=== PATIENT | male | born 1945 | race Hispanic/Latino ===

== ENCOUNTER 2018-03-16 08:19 | Day surgery (SDC) | payer MEDICARE, OTHER ==
[2018-03-06 00:28] VITALS: BMI 26.6
[2018-03-16] MEDS ORDERED: Etomidate 20 mg/10ml Inj IV ONE (10:19)
[2018-03-16] MEDS ORDERED: Sodium Chloride 0.9% 1,000 ML IV SCH (10:30)
[2018-03-16 15:46] VITALS: BP 136/61; PULSE 58; RESP 16; TEMP 97.7; O2SAT 98
== END 2018-03-16 12:42 | disposition home or self-care (01) ==
LOC: ENDO 08:19
PROVIDERS: ATTEND Internal Medicine Gastroenterology
DX: K21.9 Gastro-esophageal reflux disease without esophagitis (principal); K29.50 Unspecified chronic gastritis without bleeding; E11.9 Type 2 diabetes mellitus without complications; I25.10 Atherosclerotic heart disease of native coronary artery without angina pectoris; R10.13 Epigastric pain
CPT/HCPCS: 43239; 82948; 88305; 88312; 88342; J2001; J7030; J7040

== ENCOUNTER 2018-04-13 12:32 | Emergency (ER) | payer MEDICARE, OTHER ==
[2018-04-13 12:33] VITALS: BMI 26.6
[2018-04-13 12:48] VITALS: RESP 18
--- NOTE | 2018-04-13 13:00 | ED PDOC ---
Arrival/HPI <Rafael Crocker - Last Filed: 04/13/18 13:57> - General Historian: Patient - History of Present Illness Narrative History of Present Illness (Text): 04/13/18 12:58 72M pmhx of HTN and DM presents to ED after fall on outstretched hand last night. Pt took a tylenol this morning for the pain. Pt denies any inciting events leading up to or after the fall. Pt denies LOC, CP FC, NV, SOB, syncope, dizziness, vertigo, loss of vision, unsteady gait. Pt says he just tripped because it was dark in the room. Pt states he is able to the recall the event clearly and accurately. 04/13/18 13:02 Time/Duration: 24 hours Symptom Onset: Sudden Symptom Course: Worsening Quality: Aching Context: Tripped <Don Buckley - Last Filed: 04/13/18 15:06> - General Chief Complaint: Trauma Time Seen by Provider: 04/13/18 12:39 Past Medical History - Provider Review Nursing Documentation Reviewed: Yes - Infectious Disease Hx of Infectious Diseases: None - Tetanus Immunization Tetanus Immunization: >10 years Ago - Cardiac Hx Cardiac Disorders: Yes Hx Hypertension: Yes Hx Pacemaker: No Other/Comment: Open heart sx - Neurological Hx Paralysis: No - Endocrine/Metabolic Hx Diabetes Mellitus Type 2: Yes - Hematological/Oncological Hx Blood Transfusions: No Hx Blood Transfusion Reaction: No - Musculoskeletal/Rheumatological Hx Musculoskeletal Disorders: Yes - Psychiatric Hx Emotional Abuse: No Hx Physical Abuse: No Hx Substance Use: No - Surgical History Hx Cardiac Catheterization: Yes 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) - Anesthesia Hx Anesthesia: Yes Hx Anesthesia Reactions: No Hx Malignant Hyperthermia: No - Suicidal Assessment Feels Threatened In Home Enviroment: No <Don Buckley - Last Filed: 04/13/18 15:06> Family/Social History Family/Social History: Unknown Family HX Smoking Status: Never Smoked Hx Alcohol Use: Yes (OCCASSIONALY) Hx Substance Use: No Hx Substance Use Treatment: No <Don Buckley - Last Filed: 04/13/18 15:06> Allergies/Home Meds <Rafael Crocker - Last Filed: 04/13/18 13:57> <Don Buckley - Last Filed: 04/13/18 15:06> Allergies/Adverse Reactions: Allergies No Known Allergies Allergy (Verified 02/29/16 16:51) Home Medications: Home Meds Medication Instructions Recorded Confirmed Aspirin [Ecotrin] 81 mg PO DAILY 02/29/16 03/16/18 Famotidine [Pepcid] 10 mg PO DAILY 02/29/16 03/16/18 MetFORMIN [glucOPHAGE] 1,000 mg PO BID 02/29/16 03/16/18 Simvastatin [Zocor] 20 mg PO DAILY 02/29/16 03/16/18 Propranolol [Propranolol HCl] 20 mg PO TID 02/13/18 03/16/18 Ascorbate Calcium [Vitamin C] 500 mg PO BID 03/05/18 03/16/18 B Complex with Vitamin C 1 each PO DAILY 03/05/18 03/16/18 [B-Complex Plus Vitamin C] Cholecalciferol (Vitamin D3) 1,000 unit PO TID 03/05/18 03/16/18 [Vitamin D3] Fluticasone/Umeclidin/Vilanter 1 inh INH DAILY 03/05/18 03/16/18 [Trelegy Ellipta 100-62.5-25] Multivitamin [Multivitamins] 1 each PO DAILY 03/05/18 03/16/18 [place]-3S/Dha/Epa/Fish Oil [Fish 1 each PO TID 03/05/18 03/16/18 Oil EC 1,000 mg Softgel] Repaglinide [Prandin] 2 mg PO TID 03/05/18 03/16/18 Review of Systems - Physician Review All systems were reviewed & negative as marked: Yes - Review of Systems Constitutional: Normal. absent: Fatigue Eyes: absent: Vision Changes Respiratory: absent: SOB Cardiovascular: absent: Palpitations, Syncope Gastrointestinal: absent: Nausea Genitourinary Male: absent: Dysuria Musculoskeletal: Arthralgias (L wrist) Neurological: absent: Headache, Dizziness Psychiatric: absent: Anxiety <Don Buckley - Last Filed: 04/13/18 15:06> Physical Exam Vital Signs Temp Pulse Resp BP Pulse Ox 04/13/18 12:33 97.8 F 63 18 158/72 H 97 <Rafael Crocker - Last Filed: 04/13/18 13:57> Vital Signs Temp Pulse Resp BP Pulse Ox 04/13/18 12:33 97.8 F 63 18 158/72 H 97 Temperature: Afebrile Blood Pressure: Hypertensive Pulse: Regular Respiratory Rate: Normal Appearance: Positive for: Well-Appearing, Non-Toxic, Comfortable Pain Distress: Mild Mental Status: Positive for: Alert and Oriented X 3 - Systems Exam Head: Present: Atraumatic, Normocephalic Pupils: Present: PERRL. No: Sluggish Extroacular Muscles: Present: EOMI. No: Gaze Palsy Conjunctiva: Present: Normal Mouth: Present: Moist Mucous Membranes Respiratory/Chest: Present: Clear to Auscultation. No: Respiratory Distress, Wheezes, Rales, Rhonchi Cardiovascular: Present: Regular Rate and Rhythm, Normal S1, S2. No: Murmurs Back: Present: Normal Inspection. No: Paraspinal Tenderness Upper Extremity: Present: NORMAL PULSES, Tenderness (L wrist pain with flexion and ext active and passive ROM, pain with radial deviation, pain with hand gripping, neg scaphoid pain, neg snuff box pain, neg peres's,) Neurological: Present: CN II-XII Intact, Speech Normal Skin: Present: Warm, Dry, Normal Color Psychiatric: Present: Alert, Oriented x 3 <Don Buckley - Last Filed: 04/13/18 15:06> Medical Decision Making ED Course and Treatment: A 72 year old male presents to the emergency department for further evaluation s/p fall. In agreement with resident note, which includes further HPI details. Patient was seen and evaluated with resident, came up with plan and treatment together. - RAD Interpretation Radiology Orders: 04/13/18 12:55 WRIST, LEFT 3 VIEWS [RAD] Stat <Rafael Crocker - Last Filed: 04/13/18 13:57> ED Course and Treatment: 04/13/18 13:06 #Fall on outstretched Hand L side L wrist X ray 3 views - RAD Interpretation Radiology Orders: 04/13/18 12:55 WRIST, LEFT 3 VIEWS [RAD] Stat <Don Buckley - Last Filed: 04/13/18 15:06> - Scribe Statement The provider has reviewed the documentation as recorded by the Scribe Lisa Mcgill Provider Scribe Attestation: All medical record entries made by the Scribe were at my direction and personall y dictated by me. I have reviewed the chart and agree that the record accurately reflects my personal performance of the history, physical exam, medical decision making, and the department course for this patient. I have also personally directed, reviewed, and agree with the discharge instructions and disposition. <Rafael Crocker - Last Filed: 04/13/18 13:57> Disposition/Present on Arrival <Rafael Crocker - Last Filed: 04/13/18 13:57> - Present on Arrival Any Indicators Present on Arrival: No History of DVT/PE: No History of Uncontrolled Diabetes: No Urinary Catheter: No History of Decub. Ulcer: No History Surgical Site Infection Following: None - Disposition Have Diagnosis and Disposition been Completed?: Yes Disposition Time: 15:02 <Don Buckley - Last Filed: 04/13/18 15:06> - Disposition Diagnosis: Wrist injury Disposition: HOME/ ROUTINE Patient Problems: Current Active Problems Problem Status Onset Wrist injury Acute Condition: GOOD Referrals: Obi Leslie MD [Family Provider] - Follow up with primary Forms: [employer] (Fijian)
--- NOTE | 2018-04-13 15:05 | RAD ---
Date of service: 04/13/2018 PROCEDURE: Left Wrist Radiographs. HISTORY: fall on outstetched hand COMPARISON: None. FINDINGS: BONES: Normal. No fracture. JOINTS: Degenerative changes are seen at the base of the thumb SOFT TISSUES: Normal. OTHER FINDINGS: None. IMPRESSION: Degenerative changes at the base of the thumb No acute fracture
[2018-04-13 15:46] VITALS: BP 136/89; PULSE 76; TEMP 98; O2SAT 98
== END 2018-04-13 15:46 | disposition home or self-care (01) ==
LOC: ED 12:32
DX: S69.92XA Unspecified injury of left wrist, hand and finger(s), initial encounter (principal); W01.0XXA Fall on same level from slipping, tripping and stumbling without subsequent striking against object, initial encounter; I10 Essential (primary) hypertension; E11.9 Type 2 diabetes mellitus without complications

== ENCOUNTER 2018-04-14 02:02 | Emergency (ER) | payer MEDICARE, OTHER ==
[2018-04-14 02:02] VITALS: BMI 26.6
[2018-04-14 02:17] VITALS: TEMP 97.9
--- NOTE | 2018-04-14 03:08 | ED PDOC ---
Arrival/HPI - General Historian: Patient - History of Present Illness Narrative History of Present Illness (Text): 04/14/18 03:02 72 y/o with PMHx of DM, HTN, recent fall on outstretched hand presents to ED with complaints of L hand decreased ROM and pain. Pt had presented earlier to ED with similar complaints and reports symptoms haven't improved. He denies LOC when he fell, bleeding or decreased sensation, numbness or tingling. He denies fevers, chills, headache, dizziness, chest pain, palpitations, shortness of breath, nausea, vomiting, constipation, diarrhea, dysuria. Time/Duration: Prior to Arrival Symptom Onset: Gradual Symptom Course: Unchanged Severity Level: Mild Activities at Onset: Rest <Mae Bravo - Last Filed: 04/14/18 06:17> <Brian Melara - Last Filed: 04/16/18 01:17> - General Chief Complaint: Finger,Hand,&Wrist Time Seen by Provider: 04/14/18 02:42 Past Medical History - Provider Review Nursing Documentation Reviewed: Yes - Infectious Disease Hx of Infectious Diseases: None - Tetanus Immunization Tetanus Immunization: >10 years Ago - Cardiac Hx Cardiac Disorders: Yes Hx Hypertension: Yes Hx Pacemaker: No Other/Comment: Open heart sx - Neurological Hx Paralysis: No - Endocrine/Metabolic Hx Diabetes Mellitus Type 2: Yes - Hematological/Oncological Hx Blood Transfusions: No Hx Blood Transfusion Reaction: No - Musculoskeletal/Rheumatological Hx Musculoskeletal Disorders: Yes - Psychiatric Hx Emotional Abuse: No Hx Physical Abuse: No Hx Substance Use: No - Surgical History Hx Cardiac Catheterization: Yes 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) - Anesthesia Hx Anesthesia: Yes Hx Anesthesia Reactions: No Hx Malignant Hyperthermia: No - Suicidal Assessment Feels Threatened In Home Enviroment: No <Mae Bravo - Last Filed: 04/14/18 06:17> Family/Social History - Physician Review Nursing Documentation Reviewed: Yes Family/Social History: Unknown Family HX Smoking Status: Never Smoked Hx Alcohol Use: Yes (OCCASSIONALY) Hx Substance Use: No Hx Substance Use Treatment: No <Mae Bravo - Last Filed: 04/14/18 06:17> Allergies/Home Meds <Mae Bravo - Last Filed: 04/14/18 06:17> <Brian Melara - Last Filed: 04/16/18 01:17> Allergies/Adverse Reactions: Allergies No Known Allergies Allergy (Verified 02/29/16 16:51) Home Medications: Home Meds Medication Instructions Recorded Confirmed Aspirin [Ecotrin] 81 mg PO DAILY 02/29/16 03/16/18 Famotidine [Pepcid] 10 mg PO DAILY 02/29/16 03/16/18 MetFORMIN [glucOPHAGE] 1,000 mg PO BID 02/29/16 03/16/18 Simvastatin [Zocor] 20 mg PO DAILY 02/29/16 03/16/18 Propranolol [Propranolol HCl] 20 mg PO TID 02/13/18 03/16/18 Ascorbate Calcium [Vitamin C] 500 mg PO BID 03/05/18 03/16/18 B Complex with Vitamin C 1 each PO DAILY 03/05/18 03/16/18 [B-Complex Plus Vitamin C] Cholecalciferol (Vitamin D3) 1,000 unit PO TID 03/05/18 03/16/18 [Vitamin D3] Fluticasone/Umeclidin/Vilanter 1 inh INH DAILY 03/05/18 03/16/18 [Trelegy Ellipta 100-62.5-25] Multivitamin [Multivitamins] 1 each PO DAILY 03/05/18 03/16/18 [place]-3S/Dha/Epa/Fish Oil [Fish 1 each PO TID 03/05/18 03/16/18 Oil EC 1,000 mg Softgel] Repaglinide [Prandin] 2 mg PO TID 03/05/18 03/16/18 Review of Systems - Review of Systems Constitutional: Normal Eyes: Normal ENT: Normal Respiratory: Normal Cardiovascular: Normal Gastrointestinal: Normal Genitourinary Male: Normal Musculoskeletal: Joint Swelling (L hand. Decreased flexion of L hand) Skin: Normal Neurological: Normal Endocrine: Normal Hemo/Lymphatic: Normal Psychiatric: Normal <Mae Bravo - Last Filed: 04/14/18 06:17> Physical Exam Vital Signs Reviewed: Yes Vital Signs Temp Pulse Resp BP Pulse Ox 04/14/18 02:15 97.9 F 67 18 170/74 H 96 Temperature: Afebrile Blood Pressure: Normal Pulse: Regular Respiratory Rate: Normal Appearance: Positive for: Well-Appearing, Non-Toxic, Comfortable Pain Distress: None Mental Status: Positive for: Alert and Oriented X 3 - Systems Exam Head: Present: Atraumatic, Normocephalic Pupils: Present: PERRL Extroacular Muscles: Present: EOMI Conjunctiva: Present: Normal Mouth: Present: Moist Mucous Membranes Neck: Present: Normal Range of Motion Respiratory/Chest: Present: Clear to Auscultation, Good Air Exchange. No: Respiratory Distress, Accessory Muscle Use Cardiovascular: Present: Regular Rate and Rhythm, Normal S1, S2. No: Murmurs Abdomen: No: Tenderness, Distention, Peritoneal Signs Back: Present: Normal Inspection Upper Extremity: Present: Edema, NORMAL PULSES, Tenderness (median nerve (+) tinels), Neurovascularly Intact, Capillary Refill < 2s, Norm 2-Pt Discrimination. No: Cyanosis Lower Extremity: Present: Normal Inspection. No: Edema Neurological: Present: GCS=15, CN II-XII Intact, Speech Normal Skin: Present: Warm, Dry, Normal Color. No: Rashes Psychiatric: Present: Alert, Oriented x 3, Normal Insight, Normal Concentration <Mae Bravo - Last Filed: 04/14/18 06:17> Vital Signs Temp Pulse Resp BP Pulse Ox 04/14/18 05:21 65 17 155/89 H 100 04/14/18 02:15 97.9 F 67 18 170/74 H 96 <Brian Melara - Last Filed: 04/16/18 01:17> Medical Decision Making ED Course and Treatment: 04/14/18 03:10 Impression: 72 y/o M presents with L hand after fall earlier today Differential diagnosis includes but not limited to: Carpal tunnel syndrome Prior visit reviewed Plan: Toradol 30mg IM Apply ice pack Reassess & dispo 04/14/18 04:56 Patient re-assessed. Pt notes improvement in pain and range of motion. ROM is at baseline or that hand. Pt reports he has decreased ROM in L hand at baseline due to arthritis. Reassessment Condition: Re-examined <Mae Bravo - Last Filed: 04/14/18 06:17> - Medication Orders Current Medication Orders: Discontinued Medications Ketorolac Tromethamine (Toradol) 30 mg IM STAT STA Stop: 04/14/18 03:03 Last Admin: 04/14/18 03:16 Dose: 30 mg MAR Pain Assessment Document 04/14/18 03:16 RD (Rec: 04/14/18 03:16 RD [id number]) Pain Reassessment Is this a pain reassessment? No Sleep Is patient sleeping during reassessment? No Presence of Pain Presence of Pain Yes Pain Scale Used Protocol: PSCALES Pain Scale Used Numeric Location Left, Right or Bilateral Left Pain Location Body Site Hand IM Administration Charges Document 04/14/18 03:16 RD (Rec: 04/14/18 03:16 RD [id number]) Injection Site MAR Injection Site Left Deltoid Charges for Administration # of IM Administrations 1 <Brian Melara - Last Filed: 04/16/18 01:17> - PA / RESIDENTIAL GAS HEAT TECHNICIAN / Resident Statement DOMITILA has reviewed & agrees with the documentation as recorded. DOMITILA has examined the patient and agrees with the treatment plan. <Mae Bravo - Last Filed: 04/14/18 06:17> - PA / RESIDENTIAL GAS HEAT TECHNICIAN / Resident Statement DOMITILA has examined the patient and agrees with the treatment plan. (72 yr old male p/w L hand pain after fall. No snuffbox tenderness. No UCL weakness. Good n.v status. Weakness of hand improved w/ pain meds, at baseline strength per pt. D/c chapo with followup and return indications.) <Brian Melara - Last Filed: 04/16/18 01:17> Disposition/Present on Arrival - Present on Arrival Any Indicators Present on Arrival: No History of DVT/PE: No History of Uncontrolled Diabetes: No Urinary Catheter: No History of Decub. Ulcer: No History Surgical Site Infection Following: None - Disposition Have Diagnosis and Disposition been Completed?: Yes Disposition Time: 04:58 <Mae Bravo - Last Filed: 04/14/18 06:17> <Brian Melara - Last Filed: 04/16/18 01:17> - Disposition Diagnosis: Hand arthritis, Hand sprain, Carpal tunnel syndrome Disposition: HOME/ ROUTINE Condition: GOOD Discharge Instructions (ExitCare): Carpal Tunnel Syndrome (DC), Hand Pain (DC), Making Everyday Tasks Easier With Arthritis Additional Instructions: Please take naproxen 250mg twice a day for 5 days. Please apply wrist splint to the affect hand Please refrain from heavy lifting with the affected hand Please follow up with you primary care doctor within 1 week regarding your emergency room visit. If symptoms return, please return to nearest emergency room Prescriptions: RX: Naproxen 250 mg PO BID #10 tablet Forms: [employer] (Czech)
[2018-04-14 05:25] VITALS: BP 155/89; PULSE 65; RESP 17; O2SAT 100
== END 2018-04-14 05:21 | disposition home or self-care (01) ==
LOC: ED 02:02
DX: S63.92XA Sprain of unspecified part of left wrist and hand, initial encounter (principal); X58.XXXA Exposure to other specified factors, initial encounter; M19.042 Primary osteoarthritis, left hand; G56.00 Carpal tunnel syndrome, unspecified upper limb; E11.9 Type 2 diabetes mellitus without complications; I10 Essential (primary) hypertension
CPT/HCPCS: 96372; 99283; J1885

== ENCOUNTER 2018-08-01 15:53 | Observation (INO) | payer MEDICARE, OTHER ==
[2018-08-01 15:54] VITALS: BMI 26.6
[2018-08-01] MEDS ORDERED: Sodium Chloride 0.9% 1,000 ML IV SCH ×2 (16:45→17:15)
--- NOTE | 2018-08-01 16:53 | ED PDOC ---
Arrival/HPI <Rafael Crocker - Last Filed: 08/01/18 18:30> - General Historian: Patient - History of Present Illness Narrative History of Present Illness (Text): Patient is a 72 year old male with past medical history of CAD s/p CABG, T2DM, carcinoid tumor, Vale's esophagus presenting with chief complaint of dizziness. Patient states that his symptoms began around 11:30 AM. He was stepping out of his car when he began to feel off balance so he returned to a si tting position. He states that since the onset of symptoms everytime he changed positions he would feel off balance. Denies any other symptomatic complaints. Denies fevers, chills, chest pain, shortness of breath, nausea, vomiting, abdominal pain, diarrhea, dysuria. Denies any recent illnesses. Reports good PO intake. Time/Duration: 4-6 hours Symptom Onset: Sudden Symptom Course: Unchanged Context: Standing <Beverly Slater - Last Filed: 08/01/18 19:31> - General Chief Complaint: Syncope Time Seen by Provider: 08/01/18 15:59 Past Medical History - Provider Review Nursing Documentation Reviewed: Yes - Infectious Disease Hx of Infectious Diseases: None - Tetanus Immunization Tetanus Immunization: >10 years Ago - Cardiac Hx Cardiac Disorders: Yes Hx Hypertension: Yes Hx Pacemaker: No Other/Comment: Open heart sx - Neurological Hx Neurological Disorder: No - HEENT Hx HEENT Disorder: No - Renal Hx Renal Disorder: No - Endocrine/Metabolic Hx Endocrine Disorders: Yes Hx Diabetes Mellitus Type 2: Yes - Hematological/Oncological Hx Blood Disorders: No - Integumentary Hx Dermatological Disorder: No - Musculoskeletal/Rheumatological Hx Musculoskeletal Disorders: Yes - Gastrointestinal Hx Gastrointestinal Disorders: No - Genitourinary/Gynecological Hx Genitourinary Disorders: No - Psychiatric Hx Psychophysiologic Disorder: No Hx Substance Use: No - Surgical History Hx Cardiac Catheterization: Yes 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) - Anesthesia Hx Anesthesia: Yes Hx Anesthesia Reactions: No Hx Malignant Hyperthermia: No - Suicidal Assessment Feels Threatened In Home Enviroment: No <Beverly Slater - Last Filed: 08/01/18 19:31> Family/Social History - Physician Review Nursing Documentation Reviewed: Yes Family/Social History: No Known Family HX Smoking Status: Never Smoked Hx Alcohol Use: Yes (occasionally) Hx Substance Use: No Hx Substance Use Treatment: No <Beverly Slater - Last Filed: 08/01/18 19:31> Allergies/Home Meds <Rafael Crocker - Last Filed: 08/01/18 18:30> <Beverly Slater - Last Filed: 08/01/18 19:31> Allergies/Adverse Reactions: Allergies No Known Allergies Allergy (Verified 08/01/18 16:11) Home Medications: Home Meds Medication Instructions Recorded Confirmed Aspirin [Ecotrin] 81 mg PO DAILY 02/29/16 08/01/18 Famotidine [Pepcid] 10 mg PO DAILY 02/29/16 08/01/18 MetFORMIN [glucOPHAGE] 500 mg PO BID 02/29/16 08/01/18 Simvastatin [Zocor] 20 mg PO DAILY 02/29/16 08/01/18 Propranolol [Propranolol HCl] 10 mg PO TID 02/13/18 08/01/18 Ascorbate Calcium [Vitamin C] 500 mg PO BID 03/05/18 08/01/18 B Complex with Vitamin C 1 each PO DAILY 03/05/18 08/01/18 [B-Complex Plus Vitamin C] Cholecalciferol (Vitamin D3) 1,000 unit PO TID 03/05/18 08/01/18 [Vitamin D3] Fluticasone/Umeclidin/Vilanter 1 inh INH DAILY 03/05/18 08/01/18 [Trelegy Ellipta 100-62.5-25] Multivitamin [Multivitamins] 1 each PO DAILY 03/05/18 08/01/18 [place]-3S/Dha/Epa/Fish Oil [Fish 1 each PO TID 03/05/18 08/01/18 Oil EC 1,000 mg Softgel] Repaglinide [Prandin] 2 mg PO DAILY 08/01/18 08/01/18 Review of Systems - Physician Review All systems were reviewed & negative as marked: Yes - Review of Systems Cardiovascular: Normal Gastrointestinal: Normal Genitourinary Male: Normal Neurological: Disequilibrium. absent: Focal Weakness, Facial Droop <Beverly Slater - Last Filed: 08/01/18 19:31> Physical Exam Vital Signs Temp Pulse Resp BP Pulse Ox 08/01/18 18:12 61 18 147/76 97 08/01/18 16:15 97.1 F L 65 18 140/64 96 <Rafael Crocker - Last Filed: 08/01/18 18:30> Vital Signs Reviewed: Yes Vital Signs Temp Pulse Resp BP Pulse Ox 08/01/18 16:15 97.1 F L 65 18 140/64 96 Temperature: Afebrile Blood Pressure: Normal Pulse: Regular Respiratory Rate: Normal Appearance: Positive for: Well-Appearing, Comfortable Pain Distress: None Mental Status: Positive for: Alert and Oriented X 3 - Systems Exam Head: Present: Atraumatic, Normocephalic Pupils: Present: PERRL Extroacular Muscles: Present: EOMI Conjunctiva: Present: Normal Mouth: Present: Moist Mucous Membranes Respiratory/Chest: Present: Clear to Auscultation, Good Air Exchange. No: Respiratory Distress, Accessory Muscle Use Cardiovascular: Present: Regular Rate and Rhythm. No: Normal S1, S2 Abdomen: Present: Normal Bowel Sounds. No: Tenderness, Distention, Rebound, Guarding Upper Extremity: Present: Normal Inspection Lower Extremity: Present: Normal Inspection. No: Edema Neurological: Present: GCS=15, CN II-XII Intact, Motor Func Grossly Intact, Normal Sensory Function Skin: Present: Warm, Dry, Normal Color Psychiatric: Present: Alert, Oriented x 3 <Beverly Slater - Last Filed: 08/01/18 19:31> Medical Decision Making ED Course and Treatment: 08/01/18 18:[address] cordero to the hospitalist service. patient to be admitted for new onset ataxia with concern for cerebellar stroke. initial images unremarkable. as per discussion with karen (and agreed), patient was not a candidate for thrombolysis. patient will require admission, MR imaging to rule out cva. - Lab Interpretations Lab Results: PT 11.9 SECONDS (9.4-12.5) 08/01/18 17:15 INR 1.07 08/01/18 17:15 APTT 34.8 Seconds (26.9-38.3) 08/01/18 17:15 Troponin I < 0.01 ng/mL 08/01/18 17:15 Total Bilirubin 0.4 mg/dL (0.2-1.3) 08/01/18 17:15 AST 72 U/L (17-59) H 08/01/18 17:15 ALT 103 U/L (7-56) H 08/01/18 17:15 Alkaline Phosphatase 41 U/L (38-126) 08/01/18 17:15 Total Protein 7.6 g/dL (5.8-8.3) 08/01/18 17:15 Albumin 4.4 g/dL (3.0-4.8) 08/01/18 17:15 Globulin 3.3 gm/dL 08/01/18 17:15 Albumin/Globulin Ratio 1.3 (1.1-1.8) 08/01/18 17:15 - RAD Interpretation Radiology Orders: 08/01/18 16:43 HEAD W/O (CODE STROKE) [CT] Stat CHEST PORTABLE [RAD] Stat 08/01/18 17:09 CTA HEAD/NECK CODE STROKE [CT] Stat - Medication Orders Current Medication Orders: Sodium Chloride (Sodium Chloride 0.9%) 1,000 mls @ 100 mls/hr IV .Q10H JOSÉ Last Admin: 08/01/18 18:10 Dose: 100 mls/hr eMAR Start Stop Document 08/01/18 18:10 BB (Rec: 08/01/18 18:10 BB [id number]) Intravenous Solution Start Date 08/01/18 Start Time 18:10 Sodium Chloride (Sodium Chloride 0.9%) 1,000 mls @ 100 mls/hr IV .Q10H JOSÉ Last Admin: 08/01/18 17:22 Dose: Not Given Non-Admin Reason: dup order Discontinued Medications Aspirin (Aspirin Chewable) 81 mg PO STAT STA Stop: 08/01/18 17:11 Last Admin: 08/01/18 18:10 Dose: 81 mg Clopidogrel Bisulfate (Plavix) 300 mg PO STAT STA Stop: 08/01/18 17:11 Last Admin: 08/01/18 18:10 Dose: 300 mg <Obi,Rafael - Last Filed: 08/01/18 18:30> ED Course and Treatment: Impression: 72 year old male with dizziness Plan: - CBC, CMP - CT head - Reassess and disposition Prior Visits: Notes and results from previous visits were reviewed. Progress Notes: 08/01/2018 16:43 Code stroke activated FINDINGS: HEMORRHAGE: No acute parenchymal, subarachnoid or extra-axial hemorrhage. BRAIN: Suspect minimal chronic periventricular white matter ischemic changes. VENTRICLES: No obstructive hydrocephalus. CALVARIUM: Calvarium intact. PARANASAL SINUSES: Minor polypoid like mucosal thickening inferior margins both maxillary antra. MASTOID AIR CELLS: Unremarkable as visualized. No inflammatory changes. OTHER FINDINGS: None. IMPRESSION: No acute intracranial hemorrhage. Suspect minimal chronic periventricular white matter ischemic changes. Mild generalized volume loss. Findings discussed with Dr. Hall at approximately 5:07 p.m. with written down and read back verification. 08/01/2018 17:[address] D eLa Cruz neurologist regarding patient. Administer plavix, aspirin, IVF and obtain CTA head neck as per Dr. De La Cruz's recommendations 08/01/18 18:25 Head and neck CTA reviewed. Patient hemodynamically stable and admitted to hospitalist service FINDINGS: The aortic arch and origins of the great vessels are widely patent despite some minor calcified plaque at the origin of the left subclavian as well as the right common carotid artery as it bifurcates head its origin off of the right brachiocephalic artery. The common carotid arteries and carotid bifurcations are widely patent with no significant atherosclerotic plaque. The distal internal carotid arteries including the petrous cavernous and supraclinoid segments are widely patent. Mild moderate calcified atherosclerotic plaque left carotid siphon and less of the right-side. The supraclinoid carotid arteries are also patent. Both vertebral arteries are patent and relatively symmetric in caliber throughout. Basilar artery is patent. The visualized major branches of the [id number] are also patent. More distal branches of the anterior middle and posterior cerebral branches are symmetric so far as can be seen. Note that the most distal branches taper and are not well delineated. No evidence of large aneurysm nor vascular malformation. OTHER FINDINGS: Mild multilevel degenerative spondylosis of the cervical spine. Lung apices are clear. Sternotomy wires are present. IMPRESSION: The common carotid arteries and vertebral arteries are widely patent without evidence of dissection, occlusion or significant stenosis. Minor calcified atherosclerotic plaque both carotid siphons. No evidence of large aneurysm nor vascular malformation. - RAD Interpretation Radiology Orders: 08/01/18 16:43 HEAD W/O (CODE STROKE) [CT] Stat CHEST PORTABLE [RAD] Stat - Medication Orders Current Medication Orders: Sodium Chloride (Sodium Chloride 0.9%) 1,000 mls @ 100 mls/hr IV .Q10H JOSÉ <Beverly Slater L - Last Filed: 08/01/18 19:31> rTPA Inclusion/Exclusion - Refusal of Treatment Patient Refused Treatment: No - Inclusion Criteria for Altepase All of the below criteria for inclusion were reviewed: Yes Patient is 18 years or Older: Yes The Clinical Diagnosis of Ischemic Stroke That is Causing a Potentially Disabling Neurological Deficit: Yes Time of Onset is Well Established to be Less Than 270 Minute Before Treatment Would Begin: Yes Risk/Benefit Discussed With Patient/Family Member Present: Yes <Beverly Slater - Last Filed: 08/01/18 19:31> NIHSS Scale ([place]) Time Performed: 16:52 - How Severe is the Stoke Baseline Level of Consciousness: 0=Alert LOC to Questions: 0=Both comments correct LOC to commands: 0=Obeys both correctly Best Gaze: 0=Normal Visual: 0=No visual loss Facial: 0=Normal Motor Arm - Left: 0=No drift Motor Arm - Right: 0=No drift Motor Leg - Left: 0=No drift Motor Leg - Right: 0=No drift Limb Ataxia: 0=Absent Sensory: 0=Normal Best Language: 0=No aphasia Dysarthia: 0=Normal articulation Extinction & Inattention (Neglect): 0=Normal, no object Score: 0 Risk Level: No Stroke Risk <Beverly Slater - Last Filed: 08/01/18 19:31> Disposition/Present on Arrival - Present on Arrival Any Indicators Present on Arrival: No - Disposition Have Diagnosis and Disposition been Completed?: Yes Disposition Time: 18:34 Patient Plan: Admission <Rafael Crocker - Last Filed: 08/01/18 18:30> - Present on Arrival History of DVT/PE: No History of Uncontrolled Diabetes: No Urinary Catheter: No History of Decub. Ulcer: No History Surgical Site Infection Following: None <Beverly Slater - Last Filed: 08/01/18 19:31> - Disposition Diagnosis: Acute ataxia Disposition: HOSPITALIZED Patient Problems: Current Active Problems Problem Status Onset Acute ataxia Acute Condition: STABLE
--- NOTE | 2018-08-01 17:19 | CT ---
Date of service: 08/01/2018 PROCEDURE: CT HEAD WITHOUT CONTRAST. HISTORY: Code Stroke COMPARISON: No prior study available for comparison. TECHNIQUE: Axial computed tomography images were obtained through the head/brain without intravenous contrast. Radiation dose: Total exam DLP = 949.23 mGy-cm. This CT exam was performed using one or more of the following dose reduction techniques: Automated exposure control, adjustment of the mA and/or kV according to patient size, and/or use of iterative reconstruction technique. FINDINGS: HEMORRHAGE: No acute parenchymal, subarachnoid or extra-axial hemorrhage. BRAIN: Suspect minimal chronic periventricular white matter ischemic changes. VENTRICLES: No obstructive hydrocephalus. CALVARIUM: Calvarium intact. PARANASAL SINUSES: Minor polypoid like mucosal thickening inferior margins both maxillary antra. MASTOID AIR CELLS: Unremarkable as visualized. No inflammatory changes. OTHER FINDINGS: None. IMPRESSION: No acute intracranial hemorrhage. Suspect minimal chronic periventricular white matter ischemic changes. Mild generalized volume loss. Findings discussed with Dr. Hall at approximately 5:07 p.m. with written down and read back verification.
[2018-08-01 17:25] LABS: EOS # 0.1 (0.0-0.7); EOS % 1.9 % (1.5-5.0); HEMOGLOBIN 12.9 g/dL (14.0-18.0); LYMPH # 1.5 (1.2-3.4); LYMPH % 35.2 % (22.0-35.0); MEAN CELL VOLUME 94.4 fl (80.0-105.0); MEAN CORPUSCULAR HEMOGLOBIN 31.6 pg (25.0-35.0); MEAN CORPUSCULAR HGB CONC 33.5 g/dl (31.0-37.0); MEAN PLATELET VOLUME 9.4 fl (7.0-11.0); MONO # 0.5 (0.1-0.6); MONO % 11.9 % (1.0-6.0); RBC 4.08 10^6/uL (3.5-6.1); WHITE BLOOD COUNT 4.1 10^3/uL (4.5-11.0)
[2018-08-01 17:33] LABS: ALB/GLOB RATIO 1.3 (1.1-1.8); ALBUMIN 4.4 g/dL (3.0-4.8); ALT/SGPT 103 U/L (7-56); AST/SGOT 72 U/L (17-59); BLOOD UREA NITROGEN 25 mg/dL (7-21); CALCIUM 9.4 mg/dL (8.4-10.5); GFR NON-AFRICAN AMERICAN > 60; HDL CHOLESTEROL 24 mg/dL (29-60); INR 1.07; PARTIAL THROMBOPLASTIN TIME 34.8 Seconds (26.9-38.3); PROTHROMBIN TIME 11.9 SECONDS (9.4-12.5)
[2018-08-01 17:44] LABS: LDL CHOLESTEROL 45 mg/dL (0-129)
[2018-08-01 17:47] LABS: TROPONIN I < 0.01 ng/mL
--- NOTE | 2018-08-01 18:16 | CT ---
Date of service: 08/01/2018 PROCEDURE: CT Angiography of the neck and brain with contrast HISTORY: CVA COMPARISON: Correlation made with concurrent CT scan brain TECHNIQUE: Contiguous axial images of the neck were obtained from the level of the vertex of the skull to the superior mediastinum in the arteriographic phase of enhancement. Coronal and sagittal reformats or also generated. IV contrast dose: 148 cc Omnipaque 350 Radiation dose: Total exam DLP = 523.6 mGy-cm. This CT exam was performed using one or more of the following dose reduction techniques: Automated exposure control, adjustment of the mA and/or kV according to patient size, and/or use of iterative reconstruction technique. FINDINGS: The aortic arch and origins of the great vessels are widely patent despite some minor calcified plaque at the origin of the left subclavian as well as the right common carotid artery as it bifurcates head its origin off of the right brachiocephalic artery. The common carotid arteries and carotid bifurcations are widely patent with no significant atherosclerotic plaque. The distal internal carotid arteries including the petrous cavernous and supraclinoid segments are widely patent. Mild moderate calcified atherosclerotic plaque left carotid siphon and less of the right-side. The supraclinoid carotid arteries are also patent. Both vertebral arteries are patent and relatively symmetric in caliber throughout. Basilar artery is patent. The visualized major branches of the [id number] are also patent. More distal branches of the anterior middle and posterior cerebral branches are symmetric so far as can be seen. Note that the most distal branches taper and are not well delineated. No evidence of large aneurysm nor vascular malformation. OTHER FINDINGS: Mild multilevel degenerative spondylosis of the cervical spine. Lung apices are clear. Sternotomy wires are present. IMPRESSION: The common carotid arteries and vertebral arteries are widely patent without evidence of dissection, occlusion or significant stenosis. Minor calcified atherosclerotic plaque both carotid siphons. No evidence of large aneurysm nor vascular malformation.
--- NOTE | 2018-08-01 18:46 | CP.PCM.HP ---
<Nawaf Lay - Last Filed: 08/01/18 20:07> History of Present Illness - History of Present Illness History of Present Illness: PGY-1 Medicine H&P for Dr. Werner CC: Dizziness and ataxia Patient is a 72 year old male with past medical history of T2DM, carcinoid tumor, Vale's esophagus presenting with chief complaint of dizziness. Patient states that his symptoms began around 11:30 AM when he was stepping out of his car. Patient states that he began to feel off balance. He states that he went back to his house to check his sugars and had some juice but the symptoms persisted. He states that since the onset of symptom, every time he changed positions he would feel off balance. He denies headaches, changes in hearing, tinnitus, vertigo, focal weakness, or changes in vision. He further denies fevers, chills, chest pain, shortness of breath, nausea, vomiting, abdominal pain, diarrhea, dysuria. 12 system ROS reviewed and negative except stated in HPI. PMHx: T2DM, carcinoid tumor, Vale's esophagus PSHx: Open heart surgery to "repair a hole", mitral valve repair, hernia repair, carcinoid tumor removal, lipoma removal, capral tunnel surgery Allergies: NKDA Social Hx: Former smoker, quit 50 years ago. Drinks alcohol occasionally. Denies drug use. Patient is retired. Family Hx: Father had DM-2. Mother of a brain aneurysm in her 50's Meds: see JUN PMD: Dr. Leslie Present on Admission - Present on Admission Any Indicators Present on Admission: No History of DVT/PE: No History of Uncontrolled Diabetes: No Urinary Catheter: No Decubitus Ulcer Present: No Past Patient History - Infectious Disease Hx of Infectious Diseases: None - Tetanus Immunizations Tetanus Immunization: >10 years Ago - Past Social History Smoking Status: Never Smoked - CARDIAC Hx Cardiac Disorders: Yes Hx Hypertension: Yes Hx Pacemaker: No Other/Comment: Open heart sx - NEUROLOGICAL Hx Neurological Disorder: No - HEENT Hx HEENT Problems: No - RENAL Hx Chronic Kidney Disease: No - ENDOCRINE/METABOLIC Hx Endocrine Disorders: Yes Hx Diabetes Mellitus Type 2: Yes - HEMATOLOGICAL/ONCOLOGICAL Hx Blood Disorders: No - INTEGUMENTARY Hx Dermatological Problems: No - MUSCULOSKELETAL/RHEUMATOLOGICAL Hx Musculoskeletal Disorders: Yes - GASTROINTESTINAL Hx Gastrointestinal Disorders: No - GENITOURINARY/GYNECOLOGICAL Hx Genitourinary Disorders: No - PSYCHIATRIC Hx Psychophysiologic Disorder: No Hx Substance Use: No - SURGICAL HISTORY Hx Cardiac Catheterization: Yes 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) - ANESTHESIA Hx Anesthesia: Yes Hx Anesthesia Reactions: No Hx Malignant Hyperthermia: No Meds Allergies/Adverse Reactions: Allergies Allergy/AdvReac Type Severity Reaction Status Date / Time No Known Allergies Allergy Verified 08/01/18 16:11 Physical Exam - Constitutional Appears: Well, Non-toxic, No Acute Distress - Head Exam Head Exam: ATRAUMATIC, NORMAL INSPECTION - Eye Exam Eye Exam: EOMI, Normal appearance, PERRL - ENT Exam ENT Exam: Mucous Membranes Moist - Neck Exam Neck exam: Positive for: Normal Inspection - Respiratory Exam Respiratory Exam: Clear to Auscultation Bilateral, NORMAL BREATHING PATTERN. absent: Rales, Rhonchi, Wheezes, Respiratory Distress - Cardiovascular Exam Cardiovascular Exam: REGULAR RHYTHM, +S1, +S2. absent: Gallop, Rubs, Systolic Murmur - GI/Abdominal Exam GI & Abdominal Exam: Normal Bowel Sounds, Soft. absent: Tenderness - Extremities Exam Extremities exam: Positive for: normal inspection - Back Exam Back exam: NORMAL INSPECTION. absent: CVA tenderness (L), CVA tenderness (R), paraspinal tenderness - Neurological Exam Neurological exam: Alert, CN II-XII Intact, Normal Gait, Oriented x3, Reflexes Normal Additional comments: Muscle strength 5/5 in all extremities. Sensations intact. - Psychiatric Exam Psychiatric exam: Normal Affect, Normal Mood - Skin Skin Exam: Dry, Intact, Normal Color, Warm Results - Vital Signs Recent Vital Signs: Last Vital Signs Temp 97.1 F L 08/01/18 16:15 Pulse 61 08/01/18 18:12 Resp 18 08/01/18 18:12 BP 147/76 08/01/18 18:12 Pulse Ox 97 08/01/18 18:12 - Labs Result Diagrams: 08/01/18 17:15 08/01/18 17:15 Labs: Laboratory Results - last 24 hr 08/01/18 08/01/18 08/01/18 17:15 17:15 17:15 WBC 4.1 L RBC 4.08 Hgb 12.9 L Hct 38.5 L MCV 94.4 MCH 31.6 MCHC 33.5 RDW 13.0 Plt Count 121 MPV 9.4 Neut % (Auto) 51.0 Lymph % (Auto) 35.2 H [place] % (Auto) 11.9 H Eos % (Auto) 1.9 Baso % (Auto) 0.0 Lymph # (Auto) 1.5 [place] # (Auto) 0.5 Eos # (Auto) 0.1 Baso # (Auto) 0.00 Absolute Neuts (auto) 2.10 PT 11.9 INR 1.07 APTT 34.8 Sodium 141 Potassium 4.5 Chloride 101 Carbon Dioxide 33 Anion Gap 11 BUN 25 H Creatinine 1.1 Est GFR ( Amer) > 60 Est GFR (Non-Af Amer) > 60 Random Glucose 102 Calcium 9.4 Total Bilirubin 0.4 AST 72 H ALT 103 H Alkaline Phosphatase 41 Troponin I < 0.01 Total Protein 7.6 Albumin 4.4 Globulin 3.3 Albumin/Globulin Ratio 1.3 Triglycerides 124 Cholesterol 77 L LDL Cholesterol Direct 45 HDL Cholesterol 24 L BBK History Checked 08/01/18 17:15 WBC RBC Hgb Hct MCV MCH MCHC RDW Plt Count MPV Neut % (Auto) Lymph % (Auto) [place] % (Auto) Eos % (Auto) Baso % (Auto) Lymph # (Auto) [place] # (Auto) Eos # (Auto) Baso # (Auto) Absolute Neuts (auto) PT INR APTT Sodium Potassium Chloride Carbon Dioxide Anion Gap BUN Creatinine Est GFR ( Amer) Est GFR (Non-Af Amer) Random Glucose Calcium Total Bilirubin AST ALT Alkaline Phosphatase Troponin I Total Protein Albumin Globulin Albumin/Globulin Ratio Triglycerides Cholesterol LDL Cholesterol Direct HDL Cholesterol BBK History Checked No verified bt Assessment & Plan - Assessment and Plan (Free Text) Assessment: Patient is a 72 year old male with past medical history of CAD s/p CABG, T2DM, carcinoid tumor, Vale's esophagus presenting with chief complaint of dizziness. Plan: Dizziness - Rule out CVA vs orthostatic hypotension - CT head: No acute findings - CTA head and neck: Carotid arteries patent, no dissections, no stenosis - NIHSS: 0 - Follow up brain MRI - Neurology consulted, Dr. De La Cruz - Continue Aspirin and Plavix - Continue home Simvastatin - Follow up Lipid panel, HbA1C, TSH, Free T4, B12, Folate - Orthostatic vital signs - Neurochecks Q4H for 24 hours - Please obtain Echo results from Dr. Espinoza's office - Hold Antihypertensive for permissive hypertension Diabetes mellitus - ISS, low - Accuchecks ACHS - Follow up HbA1c Prophylaxis: - DVT: patient on Plavix Patient seen and case discussed with attending, Dr. Werner. Nawaf Lay, PGY-1 <Lakeisha Werner - Last Filed: 08/01/18 22:19> Results - Vital Signs Recent Vital Signs: Last Vital Signs Temp 97.1 F L 08/01/18 16:15 Pulse 61 08/01/18 18:12 Resp 18 08/01/18 18:12 BP 147/76 08/01/18 18:12 Pulse Ox 97 08/01/18 18:12 - Labs Result Diagrams: 08/01/18 17:15 08/01/18 17:15 Labs: Laboratory Results - last 24 hr 08/01/18 08/01/18 08/01/18 17:15 17:15 17:15 WBC 4.1 L RBC 4.08 Hgb 12.9 L Hct 38.5 L MCV 94.4 MCH 31.6 MCHC 33.5 RDW 13.0 Plt Count 121 MPV 9.4 Neut % (Auto) 51.0 Lymph % (Auto) 35.2 H [place] % (Auto) 11.9 H Eos % (Auto) 1.9 Baso % (Auto) 0.0 Lymph # (Auto) 1.5 [place] # (Auto) 0.5 Eos # (Auto) 0.1 Baso # (Auto) 0.00 Absolute Neuts (auto) 2.10 PT 11.9 INR 1.07 APTT 34.8 Sodium 141 Potassium 4.5 Chloride 101 Carbon Dioxide 33 Anion Gap 11 BUN 25 H Creatinine 1.1 Est GFR ( Amer) > 60 Est GFR (Non-Af Amer) > 60 POC Glucose (mg/dL) Random Glucose 102 Calcium 9.4 Total Bilirubin 0.4 AST 72 H ALT 103 H Alkaline Phosphatase 41 Troponin I < 0.01 Total Protein 7.6 Albumin 4.4 Globulin 3.3 Albumin/Globulin Ratio 1.3 Triglycerides 124 Cholesterol 77 L LDL Cholesterol Direct 45 HDL Cholesterol 24 L Blood Type Blood Type Confirm Antibody Screen BBK History Checked 08/01/18 08/01/18 08/01/18 17:15 18:31 21:57 WBC RBC Hgb Hct MCV MCH MCHC RDW Plt Count MPV Neut % (Auto) Lymph % (Auto) [place] % (Auto) Eos % (Auto) Baso % (Auto) Lymph # (Auto) [place] # (Auto) Eos # (Auto) Baso # (Auto) Absolute Neuts (auto) PT INR APTT Sodium Potassium Chloride Carbon Dioxide Anion Gap BUN Creatinine Est GFR ( Amer) Est GFR (Non-Af Amer) POC Glucose (mg/dL) 216 H Random Glucose Calcium Total Bilirubin AST ALT Alkaline Phosphatase Troponin I Total Protein Albumin Globulin Albumin/Globulin Ratio Triglycerides Cholesterol LDL Cholesterol Direct HDL Cholesterol Blood Type O POSITIVE Blood Type Confirm O POSITIVE Antibody Screen Negative BBK History Checked No verified bt Attending/Attestation - Attestation I have personally seen and examined this patient.: Yes I have fully participated in the care of the patient.: Yes I have reviewed all pertinent clinical information: Yes Notes (Text): 08/01/18 22:18 Seen and examined. Discussed with resident. Exam is benign. A&P as above.
--- NOTE | 2018-08-01 22:42 | CARD ---
APPROVED REPORT Date of service: 08/01/2018 EKG Measurement Heart [id number] <Conclusion> Normal sinus rhythm Left anterior fascicular block Voltage criteria for left ventricular hypertrophy Abnormal ECG
[2018-08-01] MEDS: Insulin Reg-LOW-Coverage SC SCH (23:15)
[2018-08-02 07:22] VITALS: PULSE 61; O2SAT 97
[2018-08-02 07:35] LABS: BASO # 0.01 K/mm3 (0.0-2.0); BASO % 0.4 % (0.0-3.0); EOS # 0.1 (0.0-0.7); EOS % 2.3 % (1.5-5.0); HEMOGLOBIN 13.2 g/dL (14.0-18.0); LYMPH # 1.1 (1.2-3.4); LYMPH % 40.9 % (22.0-35.0); MEAN CELL VOLUME 93.5 fl (80.0-105.0); MEAN CORPUSCULAR HEMOGLOBIN 31.7 pg (25.0-35.0); MEAN CORPUSCULAR HGB CONC 33.8 g/dl (31.0-37.0); MEAN PLATELET VOLUME 9.5 fl (7.0-11.0); MONO # 0.3 (0.1-0.6); MONO % 12.9 % (1.0-6.0); RBC 4.17 10^6/uL (3.5-6.1); RED CELL DISTRIBUTION WIDTH 13.1 % (11.5-14.5); WHITE BLOOD COUNT 2.6 10^3/uL (4.5-11.0)
--- NOTE | 2018-08-02 07:47 | CP.PCM.CON ---
<Mindy Maxwell - Last Filed: 08/02/18 14:06> History of Present Illness - History of Present Illness History of Present Illness: Mindy Maxwell DO, PGY-2: Neurology Consult Note for Dr. De La Cruz Mr. Augustin is a very pleasant 72-year-old gentleman with a past medical history of diabetes, left carpal tunnel surgery, Barretts Esophagus, mitral valvuloplasty in 2004, and dyslipidemia who presented to [facility] yesterday for feeling wobbly. He reports at 11:30 yesterday he got out of his car after he parked around [employer], got up, walked a few steps and felt wobbly. He sat back down in his car, waited for about five minutes, and then got up walked, felt the same wobbliness again, and then sat back down in his car and drank a boxed orange juice thinking that maybe his sugar was low. He waited for a few more minutes sitting in his car and went to into [employer] and took care of whatever shopping and drove home. Upon returning home, the wobbliness persisted. He ate lunch which did not help the symptoms and therefore he was brought into the emergency room with the assistance of his and others. His reports that when she saw him walking he did not appear to off balance or veering off to one side. When asked to elaborate on this wobbliness, and asked directed questions such as , "did you feel like your legs were weak, or you were lightheaded, or the room was spinning?" He says no. He denies ever experiencing such symptoms before. He also denied any associated symptoms, such as diaphoresis, chest pain, shortness of breath, vertigo, unilateral weakness or numbness, headache, nausea or vomiting. He reports that his symptoms resolved sometime after being admitted on to the floors. He reports that when he woke up in the middle of the night to go to the bathroom to urinate he was able to do so without feeling wobbly. Otherwise, a 12 point review of systems is negative except as stated above. Past medical history: diabetes, , mitral valvuloplasty in 2005 Surgical history: mitral valvuloplasty in 2004, two abdominal hernia surgeries, left carpal tunnel release surgery one week ago. Allergies: denies Family History: mother of a ruptured aneurysm at the age of 57, father had diabetes and at 94 social: 10 pack your history of smoking but quit 25 years ago, drinks alcohol socially, denies illicit drug use Review of Systems - Review of Systems All systems: reviewed and no additional remarkable complaints except (as per HPI) Past Patient History - Infectious Disease Hx of Infectious Diseases: None - Tetanus Immunizations Tetanus Immunization: >10 years Ago - Past Social History Smoking Status: Former Smoker - CARDIAC Hx Cardiac Disorders: Yes Hx Hypertension: Yes Hx Pacemaker: No Other/Comment: Open heart sx - NEUROLOGICAL Hx Neurological Disorder: No - HEENT Hx HEENT Problems: No - RENAL Hx Chronic Kidney Disease: No - ENDOCRINE/METABOLIC Hx Endocrine Disorders: Yes Hx Diabetes Mellitus Type 2: Yes - HEMATOLOGICAL/ONCOLOGICAL Hx Blood Disorders: No - INTEGUMENTARY Hx Dermatological Problems: No - MUSCULOSKELETAL/RHEUMATOLOGICAL Hx Falls: No - GASTROINTESTINAL Hx Gastrointestinal Disorders: No - GENITOURINARY/GYNECOLOGICAL Hx Genitourinary Disorders: No - PSYCHIATRIC Hx Psychophysiologic Disorder: No - SURGICAL HISTORY Hx Surgeries: Yes Hx Cardiac Catheterization: Yes - ANESTHESIA Hx Anesthesia: Yes Hx Anesthesia Reactions: No Hx Malignant Hyperthermia: No Meds Home Medications: Home Medication List Medication Instructions Recorded Confirmed Type Ascorbic Acid [Soothing Pureway-C] 500 mg PO BID 30 Days #30 tablet 08/02/18 Rx Aspirin [Low Dose Aspirin EC] 81 mg PO DAILY 21 Days #21 08/02/18 Rx tablet. B Complex with Vitamin C 1 each PO DAILY 30 Days #30 tablet 08/02/18 Rx [B-Complex Plus Vitamin C] Cholecalciferol (Vitamin D3) 1,000 unit PO TID 30 Days #90 08/02/18 Rx [Vitamin D3] tab.chew Clopidogrel [Plavix] 75 mg PO DAILY 30 Days #30 tab 08/02/18 Rx Famotidine [Pepcid] 10 mg PO DAILY tab 08/02/18 Rx Fluticasone/Umeclidin/Vilanter 1 each IH DAILY 30 Days #1 08/02/18 Rx [Trelegy Ellipta 100-62.5-25] blst.w.dev Multivitamin [Daily Pete] 1 each PO DAILY 30 Days #30 tablet 08/02/18 Rx Propranolol [Inderal] 10 mg PO TID tab 08/02/18 Rx Simvastatin [Zocor] 20 mg PO DAILY 30 Days #30 tablet 08/02/18 Rx metFORMIN [glucOPHAGE] 500 mg PO BID 30 Days #60 tab 08/02/18 Rx Allergies/Adverse Reactions: Allergies Allergy/AdvReac Type Severity Reaction Status Date / Time No Known Allergies Allergy Verified 08/01/18 16:11 - Medications Medications: Current Medications Aspirin (Ecotrin) 81 mg PO DAILY [facility] Atorvastatin Calcium (Lipitor) 40 mg PO DIN [facility] Last Admin: 08/01/18 23:44 Dose: 40 mg Clopidogrel Bisulfate (Plavix) 75 mg PO DAILY [facility] Famotidine (Pepcid) 10 mg PO DAILY [facility] Sodium Chloride (Sodium Chloride 0.9%) 1,000 mls @ 100 mls/hr IV .Q10H [facility] Last Admin: 08/01/18 17:22 Dose: Not Given Insulin Human Regular (Humulin R Low) 0 units SC ACHS [facility]; Protocol Last Admin: 08/01/18 23:15 Dose: Not Given Physical Exam - Constitutional Appears: Non-toxic, No Acute Distress - Head Exam Head Exam: ATRAUMATIC, NORMOCEPHALIC - Eye Exam Eye Exam: EOMI, Normal appearance - ENT Exam ENT Exam: Mucous Membranes Moist - Respiratory Exam Respiratory Exam: Clear to Auscultation Bilateral, NORMAL BREATHING PATTERN. absent: Accessory Muscle Use - Cardiovascular Exam Cardiovascular Exam: RRR, +S1, +S2 - Extremities Exam Extremities exam: Positive for: normal inspection. Negative for: calf tenderness - Neurological Exam Neurological exam: Alert, CN II-XII Intact, Oriented x3, Reflexes Normal Additional comments: finger to nose showed no past pointing, Romberg normal, on extraocular muscles testing patient did have horizontal nystagmus - Psychiatric Exam Psychiatric exam: Normal Affect, Normal Mood - Skin Skin Exam: Dry, Intact, Normal Color, Warm Results - Vital Signs Recent Vital Signs: Last Vital Signs Temp 97.9 F 08/02/18 06:00 Pulse 61 08/02/18 06:00 Resp 18 08/02/18 06:00 BP 154/74 H 08/02/18 06:00 Pulse Ox 97 08/02/18 06:00 - Labs Result Diagrams: 08/02/18 07:15 08/02/18 07:15 Labs: Laboratory Results - last 24 hr 08/01/18 08/01/18 08/01/18 17:15 17:15 17:15 WBC 4.1 L RBC 4.08 Hgb 12.9 L Hct 38.5 L MCV 94.4 MCH 31.6 MCHC 33.5 RDW 13.0 Plt Count 121 MPV 9.4 Neut % (Auto) 51.0 Lymph % (Auto) 35.2 H [place] % (Auto) 11.9 H Eos % (Auto) 1.9 Baso % (Auto) 0.0 Lymph # (Auto) 1.5 [place] # (Auto) 0.5 Eos # (Auto) 0.1 Baso # (Auto) 0.00 Absolute Neuts (auto) 2.10 PT 11.9 INR 1.07 APTT 34.8 Sodium 141 Potassium 4.5 Chloride 101 Carbon Dioxide 33 Anion Gap 11 BUN 25 H Creatinine 1.1 Est GFR ( Amer) > 60 Est GFR (Non-Af Amer) > 60 POC Glucose (mg/dL) Random Glucose 102 Calcium 9.4 Total Bilirubin 0.4 AST 72 H ALT 103 H Alkaline Phosphatase 41 Troponin I < 0.01 Total Protein 7.6 Albumin 4.4 Globulin 3.3 Albumin/Globulin Ratio 1.3 Triglycerides 124 Cholesterol 77 L LDL Cholesterol Direct 45 HDL Cholesterol 24 L Blood Type Blood Type Confirm Antibody Screen BBK History Checked 08/01/18 08/01/18 08/01/18 17:15 18:31 21:57 WBC RBC Hgb Hct MCV MCH MCHC RDW Plt Count MPV Neut % (Auto) Lymph % (Auto) [place] % (Auto) Eos % (Auto) Baso % (Auto) Lymph # (Auto) [place] # (Auto) Eos # (Auto) Baso # (Auto) Absolute Neuts (auto) PT INR APTT Sodium Potassium Chloride Carbon Dioxide Anion Gap BUN Creatinine Est GFR ( Amer) Est GFR (Non-Af Amer) POC Glucose (mg/dL) 216 H Random Glucose Calcium Total Bilirubin AST ALT Alkaline Phosphatase Troponin I Total Protein Albumin Globulin Albumin/Globulin Ratio Triglycerides Cholesterol LDL Cholesterol Direct HDL Cholesterol Blood Type O POSITIVE Blood Type Confirm O POSITIVE Antibody Screen Negative BBK History Checked No verified bt 08/02/18 07:15 WBC 2.6 L D RBC 4.17 Hgb 13.2 L Hct 39.0 L MCV 93.5 MCH 31.7 MCHC 33.8 RDW 13.1 Plt Count 106 L MPV 9.5 Neut % (Auto) 43.5 L Lymph % (Auto) 40.9 H [place] % (Auto) 12.9 H Eos % (Auto) 2.3 Baso % (Auto) 0.4 Lymph # (Auto) 1.1 L [place] # (Auto) 0.3 Eos # (Auto) 0.1 Baso # (Auto) 0.01 Absolute Neuts (auto) 1.15 L PT INR APTT Sodium Potassium Chloride Carbon Dioxide Anion Gap BUN Creatinine Est GFR ( Amer) Est GFR (Non-Af Amer) POC Glucose (mg/dL) Random Glucose Calcium Total Bilirubin AST ALT Alkaline Phosphatase Troponin I Total Protein Albumin Globulin Albumin/Globulin Ratio Triglycerides Cholesterol LDL Cholesterol Direct HDL Cholesterol Blood Type Blood Type Confirm Antibody Screen BBK History Checked Assessment & Plan - Assessment and Plan (Free Text) Assessment: 72-year-old gentleman with a past medical history of diabetes, carcinoid tumor, left carpal tunnel surgery, Barretts Esophagus, mitral valvuloplasty in 2004, and dyslipidemia who presented to [facility] yesterday for feeling wobbly that resolved sometime since being admitted to the hospital. 1) TIA versus stroke - patient does have a history of recent surgery (last week) and reports having Mitral valvuloplasty in the past - TSH, HgbA1c, B12, homocysteine - CT head negative - CTA of head and neck reports the common carotid arteries and vertebral arteries are widely patent without evidence of dissection, occlusion or significant stenosis. Minor calcified atherosclerotic plaque both carotid siphons. No evidence of large aneurysm nor vascular malformation. - MRI of brain shows no stroke - Given the high likelihood of the patient having an TIA affecting the posterior circulation while on aspirin, we recommend he be on aspirin and plavix for 21 days, and then plavix (75 mg daily) indefinitely Case was reviewed and discussed with attending physician, Dr. De La Cruz <Joaquin De La Cruz - Last Filed: 08/06/18 11:44> Results - Vital Signs Recent Vital Signs: Last Vital Signs Temp 98.1 F 08/02/18 12:00 Pulse 61 08/02/18 14:00 Resp 20 08/02/18 12:00 BP 163/84 H 08/02/18 12:00 Pulse Ox 97 08/02/18 06:00 - Labs Result Diagrams: 08/02/18 07:15 08/02/18 07:15 Attending/Attestation - Attestation I have personally seen and examined this patient.: Yes I have fully participated in the care of the patient.: Yes I have reviewed all pertinent clinical information: Yes Notes (Text): I agree with the assessment and plan. Will start dual antiplatelet therapy and the patient will follow up with Dr. Clark.
[2018-08-02 07:55] LABS: ALB/GLOB RATIO 1.3 (1.1-1.8); ALT/SGPT 101 U/L (7-56); AST/SGOT 75 U/L (17-59); BLOOD UREA NITROGEN 17 mg/dL (7-21); CALCIUM 8.7 mg/dL (8.4-10.5); GFR NON-AFRICAN AMERICAN > 60
[2018-08-02 08:02] LABS: FREE T4 1.01 ng/dL (0.78-2.19)
[2018-08-02] MEDS: Insulin Reg-LOW-Coverage SC SCH ×2 (08:31→12:35)
--- NOTE | 2018-08-02 11:17 | MRI ---
Date of service: 08/02/2018 PROCEDURE: MRI BRAIN WITHOUT CONTRAST HISTORY: TIA/stroke, ataxia COMPARISON: None available. TECHNIQUE: Multiplanar, multisequence MR images of the brain were obtained without intravenous contrast enhancement. FINDINGS: HEMORRHAGE: None DWI: No evidence of an acute or early subacute infarction. BRAIN PARENCHYMA: No mass effect or edema. No atrophy or chronic microvascular ischemic changes. VENTRICLES: Unremarkable. No hydrocephalus. CRANIUM: Unremarkable. ORBITS: Grossly unremarkable. PARANASAL SINUSES/MASTOIDS: Clear VASCULAR SYSTEM: Skull base flow voids intact. OTHER FINDINGS: None. IMPRESSION: Unremarkable non contrast enhanced MRI of the brain.
[2018-08-02 12:10] LABS: HEPATITIS B SURFACE AG Negative (NEGATIVE)
--- NOTE | 2018-08-02 12:12 | RAD ---
Date of service: 08/01/2018 HISTORY: Code Stroke COMPARISON: No prior. TECHNIQUE: 1 view obtained. FINDINGS: LUNGS: No active pulmonary disease. PLEURA: No significant pleural effusion identified, no pneumothorax apparent. CARDIOVASCULAR: No aortic atherosclerotic calcification present. Normal cardiac size. No pulmonary vascular congestion. OSSEOUS STRUCTURES: Sternal wires VISUALIZED UPPER ABDOMEN: Normal. OTHER FINDINGS: None. IMPRESSION: No active disease.
[2018-08-02 12:16] LABS: HEPATITIS A IGM NEGATIVE (NEGATIVE); HEPATITIS B CORE AB NEGATIVE (NEGATIVE)
[2018-08-02 12:48] LABS: FOLATE > 20.0 ng/mL
[2018-08-02 12:56] VITALS: BP 163/84; RESP 20; TEMP 98.1
[2018-08-02 13:33] LABS: HEPATITIS C ANTIBODY REACTIVE (NEGATIVE)
--- NOTE | 2018-08-02 14:43 | CP.PCM.DIS ---
<Sam Louis - Last Filed: 08/02/18 15:32> Provider - Provider Date of Admission: 08/01/18 18:23 Attending physician: Meli Garcia MD Primary care physician: Obi Leslie MD Consults: 08/01/18 16:43 Stroke Team Consult Stat Comment: Consulting Provider: Neurohospitalist Consulting Physician: NEUROHOSP Neurohospitalist for Consult: Joaquin De La Cruz Neurohospitalist for Consult: Nathan Schneider Reason for Consult: cva 08/01/18 20:16 Physician Consult Routine Comment: Consulting Provider: Joaquin De La Cruz Consulting Physician: Joaquin De La Cruz Reason for Consult: r/o CVA 08/02/18 04:12 Social Work Referral Routine Comment: Rusty score 8 Physician Instructions: Reason For Exam: Protocol Time Spent in preparation of Discharge (in minutes): 45 Diagnosis - Discharge Diagnosis (1) Acute ataxia Status: Acute Hospital Course - Lab Results Lab Results: Most Recent Lab Values WBC 2.6 10^3/uL (4.5-11.0) L D 08/02/18 07:15 RBC 4.17 10^6/uL (3.5-6.1) 08/02/18 07:15 Hgb 13.2 g/dL (14.0-18.0) L 08/02/18 07:15 Hct 39.0 % (42.0-52.0) L 08/02/18 07:15 MCV 93.5 fl (80.0-105.0) 08/02/18 07:15 MCH 31.7 pg (25.0-35.0) 08/02/18 07:15 MCHC 33.8 g/dl (31.0-37.0) 08/02/18 07:15 RDW 13.1 % (11.5-14.5) 08/02/18 07:15 Plt Count 106 10^3/uL (120.0-450.0) L 08/02/18 07:15 MPV 9.5 fl (7.0-11.0) 08/02/18 07:15 Neut % (Auto) 43.5 % (50.0-68.0) L 08/02/18 07:15 Lymph % (Auto) 40.9 % (22.0-35.0) H 08/02/18 07:15 [place] % (Auto) 12.9 % (1.0-6.0) H 08/02/18 07:15 Eos % (Auto) 2.3 % (1.5-5.0) 08/02/18 07:15 Baso % (Auto) 0.4 % (0.0-3.0) 08/02/18 07:15 Lymph # (Auto) 1.1 (1.2-3.4) L 08/02/18 07:15 [place] # (Auto) 0.3 (0.1-0.6) 08/02/18 07:15 Eos # (Auto) 0.1 (0.0-0.7) 08/02/18 07:15 Baso # (Auto) 0.01 K/mm3 (0.0-2.0) 08/02/18 07:15 Absolute Neuts (auto) 1.15 (1.4-6.5) L 08/02/18 07:15 PT 11.9 SECONDS (9.4-12.5) 08/01/18 17:15 INR 1.07 08/01/18 17:15 APTT 34.8 Seconds (26.9-38.3) 08/01/18 17:15 Sodium 140 mmol/L (132-148) 08/02/18 07:15 Potassium 4.4 mmol/L (3.6-5.0) 08/02/18 07:15 Chloride 105 mmol/L (98-107) 08/02/18 07:15 Carbon Dioxide 29 mmol/L (21-33) 08/02/18 07:15 Anion Gap 11 (10-20) 08/02/18 07:15 BUN 17 mg/dL (7-21) 08/02/18 07:15 Creatinine 1.0 mg/dl (0.8-1.5) 08/02/18 07:15 Est GFR ( Amer) > 60 08/02/18 07:15 Est GFR (Non-Af Amer) > 60 08/02/18 07:15 POC Glucose (mg/dL) 231 mg/dL (65-110) H 08/02/18 11:16 Random Glucose 167 mg/dL (70-110) H 08/02/18 07:15 Hemoglobin A1c 8.4 % (4.2-6.5) H 08/01/18 17:15 Calcium 8.7 mg/dL (8.4-10.5) 08/02/18 07:15 Phosphorus 3.4 mg/dL (2.5-4.5) 08/02/18 07:15 Magnesium 1.8 mg/dL (1.7-2.2) 08/02/18 07:15 Total Bilirubin 0.6 mg/dL (0.2-1.3) 08/02/18 07:15 AST 75 U/L (17-59) H 08/02/18 07:15 ALT 101 U/L (7-56) H 08/02/18 07:15 Alkaline Phosphatase 46 U/L (38-126) 08/02/18 07:15 Troponin I < 0.01 ng/mL 08/01/18 17:15 Total Protein 7.1 g/dL (5.8-8.3) 08/02/18 07:15 Albumin 4.0 g/dL (3.0-4.8) 08/02/18 07:15 Globulin 3.2 gm/dL 08/02/18 07:15 Albumin/Globulin Ratio 1.3 (1.1-1.8) 08/02/18 07:15 Triglycerides 124 mg/dL (35-160) 08/01/18 17:15 Cholesterol 77 mg/dL (130-200) L 08/01/18 17:15 LDL Cholesterol Direct 45 mg/dL (0-129) 08/01/18 17:15 HDL Cholesterol 24 mg/dL (29-60) L 08/01/18 17:15 Vitamin B12 781 pg/mL (239-931) 08/02/18 07:15 Folate > 20.0 ng/mL 08/02/18 07:15 Free T4 1.01 ng/dL (0.78-2.19) 08/02/18 07:15 TSH 3rd Generation 1.99 mIU/mL (0.46-4.68) 08/02/18 07:15 Hepatitis A IgM Ab Negative (NEGATIVE) 08/02/18 07:15 Hep Bs Antigen Negative (NEGATIVE) 08/02/18 07:15 Hep B Core IgM Ab Negative (NEGATIVE) 08/02/18 07:15 Hepatitis C Antibody Reactive (NEGATIVE) 08/02/18 07:15 Blood Type O POSITIVE 08/01/18 17:15 Blood Type Confirm O POSITIVE 08/01/18 18:31 Antibody Screen Negative 08/01/18 17:15 BBK History Checked No verified bt 08/01/18 17:15 - Hospital Course Hospital Course: Upon Admission: Patient is a 72 year old male with past medical history of T2DM, carcinoid tumor, Vale's esophagus presenting with chief complaint of dizziness. Patient states that his symptoms began around 11:30 AM when he was stepping out of his car. Patient states that he began to feel off balance. He states that he went back to his house to check his sugars and had some juice but the symptoms persisted. He states that since the onset of symptom, every time he changed positions he would feel off balance. He denies headaches, changes in hearing, tinnitus, vertigo, focal weakness, or changes in vision. He further denies fevers, chills, chest pain, shortness of breath, nausea, vomiting, abdominal pain, diarrhea, dysuria. Hospital Course: Pt was being worked up for ataxia. Neurology team was consulted on the case. Pt also had head CT head done which showed no acute intracranial hemorrhage. Suspect minimal chronic periventricular white matter changes. Mild generalized v olume loss. Head and neck CTA showed common carotid art and vertebral arts are widely patent without evidence of dissection, occlusion or significant stenosis. Minor calcified atherosclerotic plaques both carotid siphons. No evidence of large aneurysm or vascular malformation. Pt had MRI of brain as well which showed unchanged findings and no acute intracranial findings. Neurology team saw the pt and cleared the pt due to negative imaging and improvement of pts symptoms. Neurology team recommended ASA for 3 weeks and plavix indefinitely for pt upon d/c with follow with their team. Physical therapy was also consulted to evaluate the gait disturbance and they cleared the pt for home with outpt PT follow up. Per PT team the pt was able to ambulate and go up stairs without a return of his symptoms. Pt was medically optimized for d/c and the pt was informed of the plan for discharge with follow up with the pts PMD, neurologist and building coordinator. Pt expressed agreement and understanding of the discharge plan and of the plan for appropriate follow up. All of the pts questions and concerns were addressed prior to d/c. Discharge Exam - Head Exam Head Exam: ATRAUMATIC, NORMAL INSPECTION, NORMOCEPHALIC - Eye Exam Eye Exam: EOMI, Normal appearance, PERRL - Respiratory Exam Respiratory Exam: Clear to PA & Lateral, NORMAL BREATHING PATTERN, UNREMARKABLE. absent: Accessory Muscle Use, Rales, Rhonchi, Wheezes, Respiratory Distress, Stridor - Cardiovascular Exam Cardiovascular Exam: RRR, +S1, +S2. absent: Gallop, Rubs - GI/Abdominal Exam GI & Abdominal Exam: Normal Bowel Sounds, Soft, Unremarkable. absent: Distended, Firm, Guarding, Tenderness - Extremities Exam Extremities exam: normal capillary refill, pedal pulses present - Back Exam Back exam: NORMAL INSPECTION. absent: CVA tenderness (L), CVA tenderness (R) - Neurological Exam Neurological exam: Alert, Normal Gait, Oriented x3 - Psychiatric Exam Psychiatric exam: Normal Affect, Normal Mood - Skin Skin Exam: Dry, Normal Color, Warm Discharge Plan - Discharge Medications Prescriptions: Ascorbic Acid [Soothing Pureway-C] 500 mg PO BID 30 Days #30 tablet Aspirin [Low Dose Aspirin EC] 81 mg PO DAILY 21 Days #21 tablet.dr Cheng Armando with Vitamin C [Cheng-Tr Plus Vitamin C] 1 each PO DAILY 30 Days #30 tablet Cholecalciferol (Vitamin D3) [Vitamin D3] 1,000 unit PO TID 30 Days #90 tab.chew Clopidogrel [Plavix] 75 mg PO DAILY 30 Days #30 tab Fluticasone/Umeclidin/Vilanter [Trelegy Ellipta 100-62.5-25] 1 each IH DAILY 30 Days #1 blst.w.dev metFORMIN [glucOPHAGE] 500 mg PO BID 30 Days #60 tab Multivitamin [Daily Pete] 1 each PO DAILY 30 Days #30 tablet Simvastatin [Zocor] 20 mg PO DAILY 30 Days #30 tablet - Follow Up Plan Condition: STABLE Disposition: HOME/ ROUTINE Instructions: Acute Cerebellar Ataxia (DC) Additional Instructions: - Please follow up with your Primary Care Doctor, Dr. Leslie with in 3-5 days of discharge. - Please continue taking your home medications as directed - You have been given 2 new medications, Aspirin and Plavix. - Please take the Aspirin 81mg once daily by mouth for the next 21 days, after which please stop taking the aspirin - Please take the Plavix 75mg once daily by mouth until directed to stop by either your primary care doctor or a specialist. - Please follow up with your Neurologist Dr. De La Cruz within 7 days of discharge. - Please follow up with your building coordinator (heart doctor) Dr. Espinoza or Dr. Wynne within 7 days of discharge and please let them know that you are taking both aspirin and plavix and that you will be stopping the aspirin after 21 days as this may affect their management. - If you note that you have any of these symptoms return or if any new symptoms begin, please return to the nearest emergency department. Referrals: Fer Clark MD [Staff Provider] - Obi Leslie MD [Primary Care Provider] - <Paige Hill - Last Filed: 08/02/18 18:23> Provider - Provider Date of Admission: 08/01/18 18:23 Attending physician: Meli Garcia MD Primary care physician: Obi Leslie MD Consults: 08/01/18 16:43 Stroke Team Consult Stat Comment: Consulting Provider: Neurohospitalist Consulting Physician: NEUROHOSP Neurohospitalist for Consult: Joaquin De La Cruz Neurohospitalist for Consult: Nathan Schneider Reason for Consult: cva 08/01/18 20:16 Physician Consult Routine Comment: Consulting Provider: Joaquin De La Cruz Consulting Physician: Joaquin De La Cruz Reason for Consult: r/o CVA 08/02/18 04:12 Social Work Referral Routine Comment: Rusty score 8 Physician Instructions: Reason For Exam: Protocol Hospital Course - Lab Results Lab Results: Most Recent Lab Values WBC 2.6 10^3/uL (4.5-11.0) L D 08/02/18 07:15 RBC 4.17 10^6/uL (3.5-6.1) 08/02/18 07:15 Hgb 13.2 g/dL (14.0-18.0) L 08/02/18 07:15 Hct 39.0 % (42.0-52.0) L 08/02/18 07:15 MCV 93.5 fl (80.0-105.0) 08/02/18 07:15 MCH 31.7 pg (25.0-35.0) 08/02/18 07:15 MCHC 33.8 g/dl (31.0-37.0) 08/02/18 07:15 RDW 13.1 % (11.5-14.5) 08/02/18 07:15 Plt Count 106 10^3/uL (120.0-450.0) L 08/02/18 07:15 MPV 9.5 fl (7.0-11.0) 08/02/18 07:15 Neut % (Auto) 43.5 % (50.0-68.0) L 08/02/18 07:15 Lymph % (Auto) 40.9 % (22.0-35.0) H 08/02/18 07:15 [place] % (Auto) 12.9 % (1.0-6.0) H 08/02/18 07:15 Eos % (Auto) 2.3 % (1.5-5.0) 08/02/18 07:15 Baso % (Auto) 0.4 % (0.0-3.0) 08/02/18 07:15 Lymph # (Auto) 1.1 (1.2-3.4) L 08/02/18 07:15 [place] # (Auto) 0.3 (0.1-0.6) 08/02/18 07:15 Eos # (Auto) 0.1 (0.0-0.7) 08/02/18 07:15 Baso # (Auto) 0.01 K/mm3 (0.0-2.0) 08/02/18 07:15 Absolute Neuts (auto) 1.15 (1.4-6.5) L 08/02/18 07:15 PT 11.9 SECONDS (9.4-12.5) 08/01/18 17:15 INR 1.07 08/01/18 17:15 APTT 34.8 Seconds (26.9-38.3) 08/01/18 17:15 Sodium 140 mmol/L (132-148) 08/02/18 07:15 Potassium 4.4 mmol/L (3.6-5.0) 08/02/18 07:15 Chloride 105 mmol/L (98-107) 08/02/18 07:15 Carbon Dioxide 29 mmol/L (21-33) 08/02/18 07:15 Anion Gap 11 (10-20) 08/02/18 07:15 BUN 17 mg/dL (7-21) 08/02/18 07:15 Creatinine 1.0 mg/dl (0.8-1.5) 08/02/18 07:15 Est GFR ( Amer) > 60 08/02/18 07:15 Est GFR (Non-Af Amer) > 60 08/02/18 07:15 POC Glucose (mg/dL) 231 mg/dL (65-110) H 08/02/18 11:16 Random Glucose 167 mg/dL (70-110) H 08/02/18 07:15 Hemoglobin A1c 8.4 % (4.2-6.5) H 08/01/18 17:15 Calcium 8.7 mg/dL (8.4-10.5) 08/02/18 07:15 Phosphorus 3.4 mg/dL (2.5-4.5) 08/02/18 07:15 Magnesium 1.8 mg/dL (1.7-2.2) 08/02/18 07:15 Total Bilirubin 0.6 mg/dL (0.2-1.3) 08/02/18 07:15 AST 75 U/L (17-59) H 08/02/18 07:15 ALT 101 U/L (7-56) H 08/02/18 07:15 Alkaline Phosphatase 46 U/L (38-126) 08/02/18 07:15 Troponin I < 0.01 ng/mL 08/01/18 17:15 Total Protein 7.1 g/dL (5.8-8.3) 08/02/18 07:15 Albumin 4.0 g/dL (3.0-4.8) 08/02/18 07:15 Globulin 3.2 gm/dL 08/02/18 07:15 Albumin/Globulin Ratio 1.3 (1.1-1.8) 08/02/18 07:15 Triglycerides 124 mg/dL (35-160) 08/01/18 17:15 Cholesterol 77 mg/dL (130-200) L 08/01/18 17:15 LDL Cholesterol Direct 45 mg/dL (0-129) 08/01/18 17:15 HDL Cholesterol 24 mg/dL (29-60) L 08/01/18 17:15 Vitamin B12 781 pg/mL (239-931) 08/02/18 07:15 Folate > 20.0 ng/mL 08/02/18 07:15 Free T4 1.01 ng/dL (0.78-2.19) 08/02/18 07:15 TSH 3rd Generation 1.99 mIU/mL (0.46-4.68) 08/02/18 07:15 Hepatitis A IgM Ab Negative (NEGATIVE) 08/02/18 07:15 Hep Bs Antigen Negative (NEGATIVE) 08/02/18 07:15 Hep B Core IgM Ab Negative (NEGATIVE) 08/02/18 07:15 Hepatitis C Antibody Reactive (NEGATIVE) 08/02/18 07:15 Blood Type O POSITIVE 08/01/18 17:15 Blood Type Confirm O POSITIVE 08/01/18 18:31 Antibody Screen Negative 08/01/18 17:15 BBK History Checked No verified bt 08/01/18 17:15 Attending/Attestation - Attestation I have personally seen and examined this patient.: Yes I have fully participated in the care of the patient.: Yes I have reviewed all pertinent clinical information, including history, physical exam and plan: Yes Notes (Text): 08/02/18 18:21 Attending note; Patient seen and examined with resident. Patient is alert and awake. Currently denies any dizziness. Ambulate in without difficulty. Tolerating diet well. Denies any fevers, chills. Denies any shortness of breath, Chest pain. Patient is a 72 year old male with past medical history of T2DM, carcinoid tumor, Vale's esophagus presenting with chief complaint of dizziness. Patient states that his symptoms began around 11:30 AM when he was stepping out of his car. 1. Dizziness; resolved completely. No orthostatic blood pressure changes. No hypoglycemia noted. No positional vertigo. Physical therapy evaluation appreciated. 2. CT head, CTA and MRI of the brain is negative. Neurology evaluation appreciated. 3. Patient had recent cardiac workup including echo and recent stress test is normal. Patient will be discharged home today. Follow-up with PMD Dr. Leslie. follow up with cardiology Dr. Espinoza. 08/02/18 18:23
== END 2018-08-02 16:51 | disposition home or self-care (01) ==
LOC: ED 15:53 → INTOOBSV 18:23 → ERH 18:23 → 2RSO 20:34 → ERH 20:40 → 2RSO 22:33
PROVIDERS: ADMIT Internal Medicine; ATTEND Internal Medicine
DX: R27.8 Other lack of coordination (principal); E11.9 Type 2 diabetes mellitus without complications; E78.5 Hyperlipidemia, unspecified; I10 Essential (primary) hypertension; I25.10 Atherosclerotic heart disease of native coronary artery without angina pectoris; K22.70 Barrett's esophagus without dysplasia; Z79.02 Long term (current) use of antithrombotics/antiplatelets; Z79.82 Long term (current) use of aspirin; Z79.84 Long term (current) use of oral hypoglycemic drugs; Z79.899 Other long term (current) drug therapy; Z83.3 Family history of diabetes mellitus; Z87.891 Personal history of nicotine dependence; Z95.1 Presence of aortocoronary bypass graft
CPT/HCPCS: 36415; 70450; 70496; 70498; 70551; 71045; 80053; 80061; 80074; 82607; 82746; 82948; 83036; 83735; 84100; 84439; 84443; 84484; 85025; 85610; 85730; 86850; 86900; 93005; 97116; 97161; 97530; 99285; G0378; G8978; G8979; G8980; J7030; Q9967

== ENCOUNTER 2018-08-14 15:23 | Outpatient (CLI) | payer MEDICARE, OTHER | END 2018-08-14 15:24 | disposition home or self-care (01) | LOC: RAD 15:23 ==